=== PATIENT | female | born 1950 ===

== ENCOUNTER 2022-09-10 07:30 | Inpatient (IN) ==
[2022-10-05] MEDS ORDERED: Buffered Lidocaine 1% SYRIN 1 ml INTRADERM ONE (10:27)
[2022-10-05] MEDS ORDERED: Ondansetron 4 mg VIAL 2 MG/ML 2 ml VIAL IV PRN (10:27)
[2022-10-05] MEDS ORDERED: HYDROcodone/ACETAMIN 5/325 mg TAB PO PRN (10:27)
[2022-10-05] MEDS ORDERED: fentaNYL 100 mcg/2 ml 50 MCG/ML VIAL IV PRN (10:27)
[2022-10-05] MEDS ORDERED: Naloxone 0.4 mg VIAL 0.4 mg/ml 1 ml VIAL IV PRN (10:27)
[2022-10-05] MEDS ORDERED: Metoclopramide 5 MG/ML VIAL (10 mg) IV PRN (10:27)
[2022-10-05] MEDS ORDERED: Lactated Ringers 1000 ml BAG 1,000 ML IV SCH (11:00)
[2022-10-08] MEDS ORDERED: Chlorhexidine MOUTHWASH 0.12% 15 ML UDC ONE (05:50)
[2022-10-08] MEDS ORDERED: ceFAZolin 2 GM PREMIX 2 GM/50 ML BAG ONE (05:57)
[2022-10-08] MEDS ORDERED: Phenylephrine 40 mcg/mL 10mL (400mcg) SYRINGE ONE (06:38)
[2022-10-08] MEDS ORDERED: Sevoflurane BOTTLE ONE (06:40)
[2022-10-08] MEDS ORDERED: Rocuronium 50 mg VIAL 10 mg/ml 5 ml VIAL (50 mg) ONE ×2 (06:42→08:08)
[2022-10-08] MEDS ORDERED: Glycopyrrolate IV 0.2 MG/ML 1 ML VIAL ONE (06:42)
[2022-10-08] MEDS ORDERED: Lidocaine 2% PF 5 ML VIAL ONE (06:42)
[2022-10-08] MEDS ORDERED: Ondansetron 4 mg VIAL 2 MG/ML 2 ml VIAL ONE (06:42)
[2022-10-08] MEDS ORDERED: Propofol 10 MG/ML 20 ML BTL ONE (06:42)
[2022-10-08] MEDS ORDERED: Dexamethasone IV 4 MG/ML VIAL 1 ml VIAL ONE (06:42)
[2022-10-08] MEDS ORDERED: Phenylephrine IV 10 MG/ML 1 ml VIAL ONE (06:44)
[2022-10-08] MEDS ORDERED: fentaNYL 250 mcg/5 ml 50 MCG/ML 5 ml VIAL (250 MCG) ONE (06:46)
[2022-10-08] MEDS ORDERED: Midazolam 2 mg/2 ml VIAL 1 mg/ml 2 ml VIAL (2 mg) ONE (06:46)
[2022-10-08] MEDS ORDERED: Thrombin 5,000 UNITS 1 APPLIC KIT - topical use - TOPICAL ONE (07:01)
[2022-10-08] MEDS ORDERED: Mannitol 25% (12.5 GM) 50 ML 12.5 GM/50 ML VIAL ONE (07:01)
[2022-10-08] MEDS ORDERED: Gelfoam Sponge SIZE 100 SPONGE ONE (07:01)
[2022-10-08] MEDS ORDERED: Artificial Tear OPHTH.OINT 3.5 GM ONE (07:15)
[2022-10-08] MEDS ORDERED: Heparin 5000 UNITS/ML 1 mL VIAL ONE (07:20)
[2022-10-08] MEDS ORDERED: Lidocaine 1% VIAL 10 MG/ML VIAL 30 ML ONE (07:24)
[2022-10-08] MEDS ORDERED: Bupivacaine 0.25% SDV 30 ML ONE (07:24)
[2022-10-08] MEDS ORDERED: Mineral Oil Sterile, TOPICAL 25 ML BTL ONE (07:24)
[2022-10-08] MEDS ORDERED: Methylene Blue 0.5 % 50 MG/10 ML AMP IV ONE (07:27)
[2022-10-08 12:57] VITALS: BP 123/70
== END 2022-10-08 12:10 | disposition home or self-care (01) | DRG 941 ==
LOC: AA 10-08 05:36
PROVIDERS: ADMIT Neurological Surgery; ATTEND Neurological Surgery